=== PATIENT | male | born 1945 | race Caucasian/White ===

== ENCOUNTER 2024-05-19 07:08 | Day surgery (SDC) | payer MEDICARE ==
[2024-05-19] MEDS ORDERED: Aspirin Chewable 81 MG TAB ONE (07:38)
[2024-05-19 07:44] VITALS: BMI 29.9
[2024-05-19 07:47] LABS: #Basophils 0.05 10x3/uL (0.0-0.2); #Eosinophils 0.19 10x3/uL (0.0-0.5); #Monocytes 0.55 10x3/uL (0.0-1.1); #Neutrophils 3.59 10x3/uL (1.5-8.4); %Basophils 0.9 % (0.0-2.0); %Eosinophils 3.3 % (0.0-6.0); %Lymphocytes 23.9 % (18.0-47.0); %Monocytes 9.5 % (0.0-10.0); %Neutrophils 62.1 % (40.0-75.0); Hematocrit 49.6 % (38.8-50.0); Hemoglobin 16.4 g/dL (13.5-17.5); Mean Corpuscular HGB CONC 33.1 g/dL (32.0-36.0); Mean Corpuscular Hemoglobin 28.7 pg (27.0-33.0); Mean Corpuscular Volume 86.7 fL (81.2-95.1); Mean Platelet Volume 12.3 fL (7.4-10.4); Platelet Count 127 10x3/uL (150-450); RBC Distribution Width 14.2 % (11.5-14.5); Red Blood Cell (RBC) Count 5.72 10x6/uL (4.32-5.72); White Blood Cell (WBC) Count 5.8 10x3/uL (3.5-10.5)
[2024-05-19 08:03] LABS: Anion Gap 14 mmol/L (10-20); BUN (Urea Nitrogen) 22 mg/dL (8.4-25.7); Calc. Creatinine Clearance 114 mL/min (70-130); Calcium 9.6 mg/dL (7.8-10.44); Carbon Dioxide 24 mmol/L (23-31); Chloride 108 mmol/L (98-107); Estimated GFR 80; Glucose 243 mg/dL (83-110); INR-International Normal Ratio 0.9; PTT 28.8 sec (22.0-33.0); Potassium 4.5 mmol/L (3.5-5.1); Prothrombin Time 9.9 sec (9.5-12.1); Sodium 141 mmol/L (136-145)
[2024-05-19] MEDS ORDERED: Nitroglycerin 50 MG/250 ML BOT 0 ML ONE (08:13)
[2024-05-19] MEDS ORDERED: fentaNYL 50 mcg/mL 1 mL Vial ONE (08:13)
[2024-05-19] MEDS ORDERED: Verapamil 5 MG/2 ML VIAL ONE (08:13)
[2024-05-19] MEDS ORDERED: Heparin 10,000 UNITS/ 10 ML VIAL ONE ×2 (08:13→09:31)
[2024-05-19] MEDS ORDERED: Adenosine 6 mg (2 mL) VIAL ONE (08:13)
[2024-05-19] MEDS ORDERED: Midazolam HCl 2 mg/2 ml Vial ONE (08:14)
[2024-05-19] MEDS ORDERED: Lidocaine 1% (PF) 30 ML VIAL ONE (08:14)
[2024-05-19] MEDS ORDERED: TICAGRELOR 90 MG TABLET ONE (09:15)
[2024-05-19] MEDS ORDERED: Protamine Sulfate 50 MG/5 ML VIAL ONE (10:08)
== END 2024-05-19 13:00 | disposition home or self-care (01) ==
LOC: CSHCCL 07:08
PROVIDERS: ATTEND Internal Medicine Cardiovascular Disease
PROC: 4A023N6 Measurement of Cardiac Sampling and Pressure, Right Heart, Percutaneous Approach (ICD-10-PCS; principal; 2024-05-19)
DX: I48.91 Unspecified atrial fibrillation (principal); R94.30 Abnormal result of cardiovascular function study, unspecified; Z88.8 Allergy status to other drugs, medicaments and biological substances; Z98.890 Other specified postprocedural states; Z79.899 Other long term (current) drug therapy
CPT/HCPCS: 71046; 80048; 85025; 85347 ×2; 85610; 85730; 92972; 92978; 93459; C1725; C1753; C1760 ×2; C1761; C1769; C1874; C1887; C9604; J0153; J1644; J2250; J2720; J3010; 92937; 99152; 99153